=== PATIENT | male | born 1940 | race Caucasian/White ===

== ENCOUNTER 2020-06-15 14:12 | Inpatient (IN) ==
--- NOTE | 2020-06-15 14:26 | Emergency Department Note ---
SOB HPI General Chief Complaint: Shortness of Breath/Dyspnea Stated Complaint: pneumonia, COPD, shortness of breath Time Seen by Provider: 06/15/20 14:21 Source: EMS Mode of arrival: ambulatory Limitations: no limitations History of Present Illness HPI Narrative: This is an 80-year-old gentleman with end-stage bronchiectasis and COPD with recent referral to hospice on 06/10/2020 who became increasingly symptomatic over the last couple of days with increasing oxygen needs and anxiety. The family reports he has been unable to eat or drink secondary to severe shortness of breath. Hospice was supposed to admit this coming Wednesday, but due to his increasing symptoms the family did not feel that he could be managed at home so called for transport to the ED for evaluation. Upon presentation the patient is 68% saturation on room air. His sats increased to 96% with nonrebreather mask. He denies significant pain or discomfort currently. His son Faheem, who is his DPOA presents with him today. His advanced directive is reviewed and indicates no intubation. The patient does not have a POLST filled out at this time. The patient's medication list is reviewed and there appears to be no comfort medications available. He was recently evaluated in the emergency department on 06/09/2020 with concerns for possible pneumonia and placed on azithromycin and Augmentin. Sputum cultures are pending. Related Data Home Medications Medication Instructions Recorded Confirmed guaifenesin 600 mg tablet, 600 mg PO Q12H PRN 01/26/19 06/15/20 extended release 12 hr Previous Rx's Medication Instructions Recorded Acapella choice (green) #1 ea 09/21/17 oxygen concentrator #1 ea 09/21/17 Portable oxygen #1 ea 01/26/18 3 liters continuous oxygen #1 ea 01/29/20 tamsulosin 0.4 mg capsule 0.4 mg PO QDAY #100 cap 02/09/20 amoxicillin-pot clavulanate 1 tab PO BID #14 tab 06/09/20 [Augmentin] Allergies Allergy/AdvReac Type Severity Reaction Status Date / Time Sulfa (Sulfonamide Allergy Intermediate Hives Verified 06/09/20 15:56 Antibiotics) [SULFA (SULFONAMIDE ANTIBIOTICS)] CASHEWS AdvReac Intermediate Hives Uncoded 03/20/20 16:13 Review of Systems ROS ROS Narrative: Narrative: All systems ED: reviewed and negative except as stated. PFSH Narrative Patient History Narrative: Narrative: Medical/Surgical/Family History All Active Problems (Updated 06/15/20 @ 17:29 by Evette Swift PA-C) Weakness (Acute) Bronchiectasis (Acute) Hypoxia (Acute) End stage chronic obstructive pulmonary disease (Acute) Unintentional weight loss (Acute) Right-sided chest pain (Acute) Upper respiratory infection (Acute) Pulmonary HTN (Chronic) Hypoxia (Chronic) Foot pain (Chronic) Atherosclerotic heart disease (Chronic) Bronchiectasis (Chronic) Chronic obstructive pulmonary disease (Chronic) Acute bronchitis (Chronic) Other polyosteoarthritis (Chronic) Hypertension, essential (Chronic) Subacute bronchitis (Acute) Low back pain (Chronic) Blood in urine (Chronic) Osteoarthrosis (Chronic) 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) Hx of rotator cuff surgery (Acute) Hx of knee surgery (Acute) History of hip surgery (Acute) Hx of inguinal hernia repair (Acute) Hx of eye surgery (Acute) History of back surgery (Acute) Sinusitis (Acute) Pneumonia (Acute) Mumps (Acute) Measles (Acute) Incomplete bladder emptying (Acute 05/04/13) Hypertension (Acute) Hyperlipidemia (Acute) Hydrocele (Acute) Hives (Acute) Hay fever (Acute) Epistaxis (Acute) CAD (coronary artery disease) (Acute) Benign prostatic hyperplasia without lower urinary tract symptoms (Acute) Benign prostatic hypertrophy with lower urinary tract symptoms (LUTS) (Acute 05/04/13) Arthritis (Acute) Medical History (Updated 06/15/20 @ 17:29 by Evette Swift PA-C) Acute bronchitis (Chronic) Arthritis (Acute) Atherosclerotic heart disease (Chronic) Benign prostatic hyperplasia without lower urinary tract symptoms (Acute) Benign prostatic hypertrophy with lower urinary tract symptoms (LUTS) (Acute 05/04/13) Blood in urine (Chronic) Bronchiectasis (Chronic) CAD (coronary artery disease) (Acute) Chronic obstructive pulmonary disease (Chronic) 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) Epistaxis (Acute) Foot pain (Chronic) foot problems Hay fever (Acute) Heart murmur (Suspected) Hives (Acute) Hydrocele (Acute) Hyperlipidemia (Acute) Hypertension (Acute) Hyperpiesia Hypertension, essential (Chronic) Hypoxia (Chronic) Nocturnal Incomplete bladder emptying (Acute 05/04/13) Low back pain (Chronic) Measles (Acute) Mumps (Acute) Non-alcoholic fatty liver disease (Chronic) Osteoarthrosis (Chronic) Other polyosteoarthritis (Chronic) Pneumonia (Acute) Pulmonary HTN (Chronic) Sinusitis (Acute) Subacute bronchitis (Acute) Unintentional weight loss (Acute) Surgical History History of appendectomy (Resolved) History of back surgery (Acute) 193 History of hip surgery (Acute) 2011 Hx of eye surgery (Acute) 10/2011-bilat eyes Hx of inguinal hernia repair (Acute) Hx of knee surgery (Acute) 1991-Right Hx of rotator cuff surgery (Acute) 07/2014 Family History Brother Obesity Chronic obstructive pulmonary disease Mother Obesity Essential hypertension Cardiac disease Father Malignant neoplasm of pleura Gout Social History Smoking Status: Former smoker Alcohol Intake Frequency: a few times a week Substance Use: does not use Exam Narrative Narrative: General: AOx3, NAD, dyspneic. Pleasant and conversant. HEENT: Pinpoint pupils, EOMI, normocephalic. Dry mucous membranes. Chest: Symmetric Respiratory: Lungs rhonchorous anteriorly. Dyspneic with limited speech. Heart: Tachycardic, no M/C/R Extremities: Warm and well perfused. No edema. DP 2+ bilaterally. Neuro: No focal deficits. Cranial nerves II-XII normal. Skin: Warm dry, no rashes or lesions, no cyanosis. Psych: Normal mood and affect General Limitations: no limitations Course Course Course Narrative: 80-year-old male with end-stage COPD and bronchiectasis with increasing oxygen needs is evaluated for end-of-life care in the setting of hypoxia. Reevaluation(s) Reevaluation #1: Patient has expressed his desire for end-of-life. I have spoken with his 2 daughters, and 2 brothers who all share power of finance attorney for medical decision making. The patient would ideally like the past at home; however, the family is unable to care for his needs at this time for end-of-life. All parties involved indicate no aggressive treatments and agree that goals of care should be aimed at comfort. Vital Signs Vital signs: Vital Signs Temperature 97.3 F 06/15/20 14:14 Pulse Rate 102 H 06/15/20 14:14 Respiratory Rate 22 06/15/20 14:14 Blood Pressure 130/82 06/15/20 14:14 Pulse Oximetry (%) 94 06/15/20 14:14 Temperature 97.3 F 06/15/20 14:14 Pulse Rate 97 H 06/15/20 16:21 Respiratory Rate 22 06/15/20 14:46 Blood Pressure 125/74 06/15/20 16:21 Pulse Oximetry (%) 95 06/15/20 16:21 MDM MDM Narrative Medical decision making narrative: 1. Hypoxia related to end-stage COPD and bronchiectasis: Goals of care are for comfort at this time. Patient does not have hospice resources established at this time for end-of-life at home, and given his increasing oxygen needs and hypoxia he meets criteria for admission and end-of-life care. This case has been discussed with Dr. Bagley, hospitalist who is agreed to admission. -POLST form has been reviewed with the patient and updated to reflect comfort care only; no labs, no IV fluids, no antibiotics, no feeding tubes, no aggressive respiratory interventions -Morphine as needed for dyspnea Lab Data Labs: Lab Results 06/15/20 Range/Units 14:43 SARS-CoV-2 (PCR) Negative (Negative) Discharge Plan Patient/Caregiver Discharge Instructions Pt seen by SENIOR JAVA ARCHITECT/PA only: Yes Clinical Impression: Bronchiectasis, Hypoxia, End stage chronic obstructive pulmonary disease Patient Disposition: Xfer As Inpt ([facility]) Condition: Serious Discharge Date/Time: 06/15/20 16:51
[2020-06-15] MEDS ORDERED: morphine 20 MG/ML ORAL.CONC SL PRN (14:34)
[2020-06-15] MEDS ORDERED: morphine 20 MG/ML ORAL.CONC ONE (15:03)
--- NOTE | 2020-06-15 15:32 | Internal Med History&Physical ---
HPI History of Present Illness Patient information: Note initiated : 06/15/20 at 3:29 pm Service Date, if different from initiated Date: [] Patient: Joon Lam 80 y/o M admitted on for pneumonia, COPD, shortness of breath. Chief Complaint: [] History of present illness: Mr. Lam is a 80 year old M With end-stage COPD pulmonary fibrosis and underlying bronchiectasis who was recently put on hospice. However, hospice is not able to arrive in the home until Wednesday. Patient recently treated for pneumonia. Patient had increasing shortness of breath and weakness and family unable to take care of at home. Patient is on home oxygen 3 L but was found to be hypoxic in the ED even down to the 60s. ED provider had a long discussion with family and goals of care and discussed comfort care as well as tube feedings antibiotics IV fluids which he declines. The POA's is Faheem, his son. I had further discussion with him regarding comfort care and his goals. He would like the patient's to come in and see him if they can get her in possibly today versus tomorrow. And when that is happened then they are okay making him complete comfort care and stopping the oxygen and letting him pass away. Ideally they would like him to be able to go home to pass away. We will discuss this with case manager specialist tomorrow to see how that could work with hospice. Review of Systems: Positive as above plus constipation. Denies headache/fever/ch ills/nausea/vomiting/chest or abdominal pain/diarrhea. Remaining 10 point review of system reviewed negative PFSH PFSH All Active Problems (Updated 06/09/20 @ 17:48 by Dejon Quinteros MD) Weakness (Acute) Unintentional weight loss (Acute) Right-sided chest pain (Acute) Upper respiratory infection (Acute) Pulmonary HTN (Chronic) Hypoxia (Chronic) Foot pain (Chronic) Atherosclerotic heart disease (Chronic) Bronchiectasis (Chronic) Chronic obstructive pulmonary disease (Chronic) Acute bronchitis (Chronic) Other polyosteoarthritis (Chronic) Hypertension, essential (Chronic) Subacute bronchitis (Acute) Low back pain (Chronic) Blood in urine (Chronic) Osteoarthrosis (Chronic) 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) Hx of rotator cuff surgery (Acute) Hx of knee surgery (Acute) History of hip surgery (Acute) Hx of inguinal hernia repair (Acute) Hx of eye surgery (Acute) History of back surgery (Acute) Sinusitis (Acute) Pneumonia (Acute) Mumps (Acute) Measles (Acute) Incomplete bladder emptying (Acute 05/04/13) Hypertension (Acute) Hyperlipidemia (Acute) Hydrocele (Acute) Hives (Acute) Hay fever (Acute) Epistaxis (Acute) CAD (coronary artery disease) (Acute) Benign prostatic hyperplasia without lower urinary tract symptoms (Acute) Benign prostatic hypertrophy with lower urinary tract symptoms (LUTS) (Acute 05/04/13) Arthritis (Acute) Medical History (Updated 06/09/20 @ 17:48 by Dejon Quinteros MD) Acute bronchitis (Chronic) Arthritis (Acute) Atherosclerotic heart disease (Chronic) Benign prostatic hyperplasia without lower urinary tract symptoms (Acute) Benign prostatic hypertrophy with lower urinary tract symptoms (LUTS) (Acute 05/04/13) Blood in urine (Chronic) Bronchiectasis (Chronic) CAD (coronary artery disease) (Acute) Chronic obstructive pulmonary disease (Chronic) 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) Epistaxis (Acute) Foot pain (Chronic) foot problems Hay fever (Acute) Heart murmur (Suspected) Hives (Acute) Hydrocele (Acute) Hyperlipidemia (Acute) Hypertension (Acute) Hyperpiesia Hypertension, essential (Chronic) Hypoxia (Chronic) Nocturnal Incomplete bladder emptying (Acute 05/04/13) Low back pain (Chronic) Measles (Acute) Mumps (Acute) Non-alcoholic fatty liver disease (Chronic) Osteoarthrosis (Chronic) Other polyosteoarthritis (Chronic) Pneumonia (Acute) Pulmonary HTN (Chronic) Sinusitis (Acute) Subacute bronchitis (Acute) Unintentional weight loss (Acute) Surgical History History of appendectomy (Resolved) History of back surgery (Acute) 1937 History of hip surgery (Acute) 2011 Hx of eye surgery (Acute) 10/2011-bilat eyes Hx of inguinal hernia repair (Acute) Hx of knee surgery (Acute) 1991-Right Hx of rotator cuff surgery (Acute) 07/2014 Family History Brother Obesity Chronic obstructive pulmonary disease Mother Obesity Essential hypertension Cardiac disease Father Malignant neoplasm of pleura Gout Social History smoking status: Former smoker quit date: 07/19/69 pack-years: 13 alcohol intake frequency: a few times a week substance use type: does not use MEDS/ALLERGIES Home Medications and Allergies Home Medications Medication Instructions Recorded Confirmed Type Acapella choice (green) #1 ea 09/21/17 06/09/20 Rx oxygen concentrator #1 ea 09/21/17 06/15/20 Rx Portable oxygen #1 ea 01/26/18 06/09/20 Rx guaifenesin 600 mg tablet, 600 mg PO Q12H PRN 01/26/19 06/15/20 History extended release 12 hr 3 liters continuous oxygen #1 ea 01/29/20 06/09/20 Rx tamsulosin 0.4 mg capsule 0.4 mg PO QDAY #100 cap 02/09/20 06/15/20 Rx amoxicillin-pot clavulanate 1 tab PO BID #14 tab 06/09/20 06/15/20 Rx [Augmentin] Allergies Allergy/AdvReac Type Severity Reaction Status Date / Time Sulfa (Sulfonamide Allergy Intermediate Hives Verified 06/09/20 15:56 Antibiotics) [SULFA (SULFONAMIDE ANTIBIOTICS)] CASHEWS AdvReac Intermediate Hives Uncoded 03/20/20 16:13 EXAM Constitutional Vitals: Temp Pulse Resp BP Pulse Ox 97.3 F 111 H 22 139/85 98 06/15/20 14:14 06/15/20 15:05 06/15/20 14:46 06/15/20 15:01 06/15/20 15:05 Exam: General: Alert, Awake, No acute Distress, cachexia Eyes/N/T: EOMI, PERRL, Head/Neck: neck supple, normocephalic atraumatic CV: RRR, No murmurs, normal s1/s2 Pulm: Rhonchi and diminished b/l, no wheezing Abd: soft, nontender, +BS x4 Ext: no clubbing/cyanosis/edema Neuro: Alert, no focal deficits, moves all extremities, CN 2-12 grossly intact, symmetrical strength b/l upper/lower, sensations intact b/l upper/lower Skin: warm/dry DATA Data Completed and Pending Labs: Labs from last 24 hours 06/15/20 14:43 SARS-CoV-2 (PCR) Negative A/P Narrative A/P Narrative: A: *Acute on chronic hypoxic respiratory failure: *End-stage COPD /bronchiectasis/pulmonary fibrosis (on 3L @home): *Malnutrition/FTT: *recent PNA *Constipation: *Goals of care: P: -comfort measures -maintain Oxygen support until family arrives, then likely will stop and make complete comfort care only -Family hoping he can go home with hospice on Wednesday to pass away; the w ill determine if this is possible. -no escalation of care, no abx/tube feedings/iv fluids Time Spent With Patient Time: Total time spent is greater than 50% in coordination of care (as documented) at patient's floor/unit and/or counseling patient:
[2020-06-15] MEDS ORDERED: morphine 4 MG/ML VIAL IV PRN (17:12)
[2020-06-15] MEDS ORDERED: guaiFENesin 600 MG TAB.SR.12H PO PRN (17:12)
[2020-06-15] MEDS ORDERED: POLYETHYLENE GLYCOL 3350 17 GM PACKET PO PRN (17:12)
[2020-06-15] MEDS ORDERED: LACTULOSE 20 GM/30 ML ORAL.SOL PO PRN (17:12)
[2020-06-15] MEDS ORDERED: ACETAMINOPHEN 325 MG TABLET PO PRN (17:12)
[2020-06-15] MEDS ORDERED: ONDANSETRON 4 MG/2 ML VIAL IV PRN (17:12)
[2020-06-15] MEDS ORDERED: LORazepam 2 MG/ML VIAL IV PRN (17:12)
[2020-06-15] MEDS ORDERED: SENNOSIDES 1 TABLET PO PRN (17:12)
[2020-06-15] MEDS ORDERED: morphine 4 MG/ML VIAL NEB PRN (17:12)
[2020-06-15] MEDS ORDERED: DOCUSATE SODIUM 100 MG CAPSULE PO SCH (21:00)
[2020-06-15] MEDS ORDERED: 0.9 % SODIUM CHLORIDE 10 ML SYRINGE IV SCH ×2 (22:00)
--- NOTE | 2020-06-16 07:31 | Death Note ---
Discharge Sum: Prov Provider Patient information: Note initiated : 06/16/20 at 7:29 am Service Date, if different from initiated Date: [] Patient: Joon Lam 80 y/o M admitted on 06/15/20 for pneumonia, COPD, shortness of breath. Chief Complaint: [] Primary care physician: Erin Arizmendi Consults: 06/15/20 Consult to Physician [CONS] Stat Comment: Consulting Provider: Paul Bagley Reason For Exam: Physician to Consult Discharge Sum: Summary Date and Time Date of admission: 06/15/20 16:54 Summary Details: History of present illness: Mr. Lam is a 80 year old M With end-stage COPD pulmonary fibrosis and underlying bronchiectasis who was recently put on hospice. However, hospice is not able to arrive in the home until Wednesday. Patient recently treated for pneumonia. Patient had increasing shortness of breath and weakness and family unable to take care of at home. Patient is on home oxygen 3 L but was found to be hypoxic in the ED even down to the 60s. ED provider had a long discussion with family and goals of care and discussed comfort care as well as tube feedings antibiotics IV fluids which he declines. The POA's is Faheem, his son. I had further discussion with him regarding comfort care and his goals. He would like the patient's to come in and see him if they can get her in possibly today versus tomorrow. And when that is happened then they are okay making him complete comfort care and stopping the oxygen and letting him pass away. Ideally they would like him to be able to go home to pass away. We will discuss this with lead case manager tomorrow to see how that could work with hospice. 06/16 Patient at 0220 hours with family at bedside. A: *Acute on chronic hypoxic respiratory failure: *End-stage COPD /bronchiectasis/pulmonary fibrosis (on 3L @home): *Malnutrition/FTT: *recent PNA Additional Data Confirmation of as documented by pronouncing clinician: no pulse, no respirations and no heart sounds Family: at bedside Attending physician: Paul Bagley Was code activated?: No Autopsy requested?: No
[2020-06-16] MEDS ORDERED: TAMSULOSIN 0.4 MG CAPSULE PO SCH (09:00)
== END 2020-06-16 05:10 | disposition expired | DRG 189 ==
LOC: ED 14:12 → MEDSUR 16:51
PROVIDERS: ADMIT Internal Medicine; ATTEND Internal Medicine